=== PATIENT | male | born 1955 ===

== ENCOUNTER 2021-04-30 11:32 | Emergency (ER) | payer SELFPAY ==
[2021-04-30 16:27] LABS: BASOPHIL 1.3 % (0-2); EOSINOPHIL 1.4 % (0-7); HCT 45.9 % (42.0-52.0); HGB 15.8 g/dl (13.2-18.0); LYMPHOCYTE 44.1 % (15-48); MCH 31.3 pg (25.0-31.0); MCHC 34.4 g/dL (32.0-36.0); MCV 90.9 fL (78.0-100.0); MONOCYTE 8.7 % (0-12); MPV 11.5 fL (6.0-9.5); NEUTROPHIL 43.7 % (41-80); NRBC 0; PLT 187 K/uL (150-400); RBC 5.05 M/uL (4.70-6.00); RDW 11.9 % (11.5-14.0); WBC 6.3 K/uL (4.0-10.5)
[2021-04-30 16:34] LABS: ALBUMIN 4.5 g/dL (3.4-5.0); BILIRUBIN - TOTAL 0.9 mg/dL (0.2-1.0); BUN/CREAT RATIO (CALC) 10.8 RATIO; CREATININE 0.83 mg/dL (0.67-1.17); GLOBULIN (CALCULATION) 3.5 g/dL; POTASSIUM 4.1 mmol/L (3.5-5.1)
== END 2021-04-30 17:32 | disposition left against medical advice (07) ==
LOC: FER 11:32
PROVIDERS: Emergency Medicine
DX: M54.9 Dorsalgia, unspecified (principal); Z53.8 Procedure and treatment not carried out for other reasons
CPT/HCPCS: 36415; 80053; 85025; 99281